=== PATIENT | male | born 1995 | race Caucasian/White ===

== ENCOUNTER 2020-12-17 14:07 | Emergency (ER) | payer OTHER ==
[2020-12-17 14:16] VITALS: BP 126/70; PULSE 70; TEMP 98; BMI 35.6
[2020-12-17] MEDS ORDERED: IBUPROFEN 600 MG TABLET (FP) PO ONE ×2 (15:54→16:00)
== END 2020-12-17 16:51 | disposition home or self-care (01) ==
LOC: JERFT 14:07
DX: S63.642A Sprain of metacarpophalangeal joint of left thumb, initial encounter (principal); W10.9XXA Fall (on) (from) unspecified stairs and steps, initial encounter; Y92.9 Unspecified place or not applicable
CPT/HCPCS: 73140-TC-LT-FY; 99284-25

== ENCOUNTER 2021-05-10 20:47 | Emergency (ER) | payer BC, OTHER ==
[2021-05-10 21:12] VITALS: BP 111/60; PULSE 62; TEMP 98.9; BMI 36.8
[2021-05-10] MEDS ORDERED: AMOX TR/POT CLAV 875MG/125MG TABLETS (FP) PO ONE (21:59)
[2021-05-10] MEDS ORDERED: KETOROLAC TROMETHAMINE 30 MG/1 ML VIAL IM ONE (21:59)
[2021-05-10] MEDS ORDERED: AMOX TR/POT CLAV 875MG/125MG TABLETS (FP) ONE (22:07)
[2021-05-10] MEDS ORDERED: KETOROLAC TROMETHAMINE 30 MG/1 ML VIAL ONE (22:07)
== END 2021-05-10 22:34 | disposition home or self-care (01) ==
LOC: JERFT 20:47
PROC: 3E0234Z Introduction of Serum, Toxoid and Vaccine into Muscle, Percutaneous Approach (ICD-10-PCS; principal; 2021-05-10)
DX: K02.9 Dental caries, unspecified (principal)
CPT/HCPCS: 99284-25